=== PATIENT | male | born 1955 ===

== ENCOUNTER → 2020-05-30 14:26 | Outpatient (CLI) | payer OTHER | END | disposition home or self-care (01) | LOC: LAB 14:26 | PROVIDERS: ATTEND Emergency Medicine Pediatric Emergency Medicine | DX: Z03.818 Encounter for observation for suspected exposure to other biological agents ruled out (principal) ==

== ENCOUNTER 2020-06-06 09:35 | Outpatient (CLI) | payer OTHER | END 2020-06-06 10:48 | disposition home or self-care (01) | LOC: LAB 09:35 | DX: Z03.818 Encounter for observation for suspected exposure to other biological agents ruled out (principal) ==

== ENCOUNTER 2020-06-07 08:18 | Outpatient (CLI) | payer OTHER | END 2020-06-07 15:00 | disposition home or self-care (01) | LOC: LAB 08:18 | DX: U07.1 COVID-19 (principal) ==